=== PATIENT | female | born 1980 | race Caucasian/White ===

== ENCOUNTER 2018-07-09 12:05 | Emergency (ER) | payer OTHER ==
[2018-07-09] MEDS ORDERED: NEOMYC/POLYMYX/DEXAMETH OPH 5 ML LEFT EYE (14:00)
== END 2018-07-09 14:42 | disposition home or self-care (01) ==
LOC: FTE 12:05
DX: H00.025 Hordeolum internum left lower eyelid (principal)
CPT/HCPCS: 99283; Z7502